=== PATIENT | female | born 1960 | race African-American/Black ===

== ENCOUNTER 2016-07-27 14:57 | Inpatient (IN) | payer OTHER ==
[2016-07-27] VITALS (16 sets, daily range): BP systolic 109–162; BP diastolic 81–108
[~2016-07-27] VITALS: Ht 152.4 cm; Wt 48.4 kg
--- NOTE | ~2016-07-27 | EKG ---
[address] [place] [address] ELECTROCARDIOGRAM REPORT Name: ALIDA DHALIWAL Room #: 246-P ADM IN M.R.#: [id number] Admission: 07/27/16 Attend Phys: Preet Ulrich MD Discharge: Date of : 64 Report #: [id number] THIS REPORT FOR: //name// [facility] ED Test Date: 2016-07-27 Test Time: 15:00:17 Pat Name: ALIDA DHALIWAL Department: Room: 246 Gender: F Production Expert: Teresa AVILA : 1960 Requested By: Julita Gabriel Order Number: [id number] MD: Silvestre Wells Measurements Intervals [place] Rate: 143 P: 79 MD: 119 QRS: -80 QRSD: 70 T: 78 QT: 269 QTc: 415 Interpretive Statements Sinus tachycardia Consider right atrial enlargement Abnormal R-wave progression, late transition Consider left ventricular hypertrophy Inferior infarct Compared to ECG 10/16/2015 02:38:10 no change Electronically Signed On 07-28-2016 11:22:08 CDT by Silvestre Wells [email or web address] <ELECTRONICALLY SIGNED> By: Silvestre Wells MD 07/28/16 1122 1500 Dhruv Wells MD /SARAH
--- NOTE | ~2016-07-27 | HC ---
[facility] [place] [place] [address] CONSULTATION Name: ALIDA DHALIWAL Room #: 304-P [facility] IN M.R.#: [id number] Admission: 07/27/16 Attend Phys: Preet Ulrich MD Discharge: 08/05/16 Date of : 64 Report #: [id number] THIS REPORT FOR: //name// CC: TERRI physician/PCP Preet Ulrich DATE OF SERVICE: 08/02/2016 IDENTIFICATION: Psychiatric consultation as requested for alcohol dependence. HISTORY OF PRESENT ILLNESS: The patient is a 55-year-old female who was admitted on the July 27 after daughter found the patient to be confused. The patient required intubation and now has been extubated. On interview, ____ alcohol use and says "I have not drank for 3 days." Notably, she seems to be unaware of the fact that she has been in hospital for 6 days in total. She minimizes any problems due to alcohol. She essentially denies any significant psychiatric history. She states that she has not been ____. When screened for depressive symptoms, she states that she has been depressed, but is not able to describe any further what that entails or how long it has been going on. A few minutes later, she goes on to state that her mood is just fine. Of note, the patient was seen by psychiatry in consultation last summer, she was prescribed naltrexone. The patient has no memory of this and it appears that she did not follow through. ALLERGIES: PENICILLIN, SULFA. MEDICATIONS: Reviewed and include Haldol 2.5 mg oral or intramuscular every 2 hours as needed, Ativan 1 mg every 4 hours as needed. PAST MEDICAL HISTORY: Pancytopenia, pancreatitis, hypertension. FAMILY HISTORY: Noncontributory. SOCIAL HISTORY: The patient is disabled, lives with her daughter, significant longstanding history of alcohol abuse. LABORATORY DATA: Urine drug screen was negative. Blood alcohol level was less than 10. MENTAL STATUS EXAMINATION: Adequate hygiene, polite, cooperative, fair eye contact. Speech notable for prolonged latency. Thought process concrete. No hallucinations or delusions. No suicidal or homicidal ideation. Affect calm, though blunted. She is confused, poor attention and short term memory. Insight and judgment overall poor at this time. [facility] [address] [place] [address] CONSULTATION Name: ALIDA DHALIWAL Room #: 304-P [facility] IN M.R.#: [id number] Admission: 07/27/16 Attend Phys: Preet Ulrich MD Discharge: 08/05/16 Date of : 64 Report #: [id number] DIAGNOSIS: Delirium, alcohol dependence. PLAN: The patient continues to demonstrate significant component of delirium. She is not an accurate historian. At this time, I would not introduce any further psychiatric medications. We will stop the Ativan. She is out of the window for alcohol withdrawal. We can continue the Haldol as needed. Advised to continue encouraging sobriety. Encouraged the patient to utilize chemical dependency resources. Thank you for this consultation. Please contact me with any further questions or concerns. <ELECTRONICALLY SIGNED> By: Belinda Ortiz MD 08/06/16 1158 1414 1649 Belinda Ortiz MD /nt
--- NOTE | ~2016-07-27 | HC ---
[facility] [place] [address] [place] [address] CONSULTATION Name: ALIDA DHALIWAL Room #: 246-P ADM IN M.R.#: [id number] Admission: 07/27/16 Attend Phys: Preet Ulrich MD Discharge: Date of : 64 Report #: [id number] THIS REPORT FOR: //name// CC: TERRI physician/PCP Preet Ulrich REASON FOR CONSULTATION: Elevated creatinine. REASON FOR THE PRESENTATION: Confusion, brought by her daughter. HISTORY OF PRESENT ILLNESS: Unfortunately, the patient is not able to provide me with the details of the history as she is currently intubated. She had a history of alcohol abuse. The daughter found the patient in bed and was unresponsive. She called 911. Upon arrival, the patient was found to be tachycardic with a pulse rate of around 280. Due to the lack of IV access, she was not given any medications. The patient's condition deteriorated and she was intubated in the emergency room. Details of the history are scanty as the patient and her family are not available. She did have an acute kidney injury back in 2016 with a creatinine of around 1.6. On presentation yesterday, she was found to have high BUN and creatinine. She was also found to have high serum sodium and high serum potassium and I was consulted to manage her acute kidney injury and electrolyte issues. REVIEW OF SYSTEMS: Completely unobtainable given the patient's altered mental status. PAST MEDICAL HISTORY: Significant for remote history of alcohol abuse and still ongoing history of alcohol abuse. ALLERGIES: PENICILLIN and SULFA. ADDITIONAL PAST MEDICAL HISTORY: Nephrolithiasis and cholelithiasis. SOCIAL HISTORY: Heavy drinker and smoker. FAMILY HISTORY: Unobtainable. MEDICATIONS: There was no reported medication intake. PAST SURGICAL HISTORY: Status post left femoral neck fracture repair. PHYSICAL EXAMINATION: GENERAL: The patient is currently intubated. VITAL SIGNS: Blood pressure 110/87. She is maintained on Levophed. HEAD AND NECK: ET tube. CHEST: Decreased air entry bilaterally. CARDIOVASCULAR: Tachycardic with no rub. [facility] [address] [place] [address] CONSULTATION Name: ALIDA DHALIWAL Room #: 246-P [facility] IN M.R.#: [id number] Admission: 07/27/16 Attend Phys: Preet Ulrich MD Discharge: Date of : 64 Report #: [id number] ABDOMEN: Soft, nontender. No hepatosplenomegaly. LOWER EXTREMITIES: No edema. NEUROLOGICAL: Intubated. GENERAL: She looks dehydrated, emaciated, thin, cachectic with all stigmata of chronic liver disease. LABORATORY VALUES: Reviewed. BUN is down from 98 to 77, creatinine is down to 3.4 from 5.5. Anion gap is down to 17 from 26. She is still acidotic with a carbon dioxide of 13, it is up from 12. Potassium is down to 3.5. Sodium is down from 148 to 139. Blood gas was reviewed. Toxicology screen is still pending. UA looks dirty. ASSESSMENT, IMPRESSION AND PLAN: 1. Acute kidney injury. 2. Metabolic acidosis. 3. Hypernatremia. 4. Hypokalemia. 5. Hypertension. 6. Tachycardia. 7. Ongoing alcohol abuse. 8. Septic workup is ongoing. She corrected her electrolyte issues. She is still acidotic. I will reformulate her IV fluids. 9. Antibiotics per the primary team. 10. Alcohol withdrawal protocol. 11. BUN and creatinine are coming down. 12. Usual routine end-stage liver disease workup. 13. Discussed plans of care with the family. 14. Lipase on presentation yesterday was 2295. I do not see any imaging of her abdomen and this might be pursued by the primary team. 15. Magnesium was rectified yesterday. 16. about her white blood cell count coming from 10 yesterday to 1.4. Repeat. 17. Thrombocytopenia was noted, could be related to her end-stage liver disease versus sepsis. 18. Urinalysis looked extremely dirty and we will wait for cultures. <ELECTRONICALLY SIGNED> By: Yomi Landry MD 07/29/16 0745 0745 22 Jadiel Estrada MD /nt
--- NOTE | ~2016-07-27 | HC ---
[facility] [place] [address] [place] [address] CONSULTATION Name: ALIDA DHALIWAL Room #: 304-P ADM IN M.R.#: [id number] Admission: 07/27/16 Attend Phys: Preet Ulrich MD Discharge: Date of : 64 Report #: [id number] THIS REPORT FOR: //name// CC: TERRI physician/PCP Preet Ulrich DATE OF SERVICE: 08/02/2016 HISTORY OF PRESENT ILLNESS: The patient is a 55-year-old female who was admitted with ETOH abuse, was confused, elevated heart rate of 130s, had emesis x 5 days when she was admitted. She was diagnosed with an acute metabolic encephalopathy secondary to ETOH intoxication and/or other as well as developing acute respiratory failure, for which she was intubated. She had sepsis secondary to urinary tract infection, acute renal insufficiency, pancreatitis, pancytopenia. She gradually stabilized, was able to be extubated. She had tremulousness, but was out of the window for ETOH withdrawal and her Ativan was discontinued. She was noted to be given Haldol as indicated for agitation. She was noted to have hoarseness due to intubation and ENT consulted. She was continued on IV antibiotics for her septicemia. Renal insufficiency is improving. She has now been transferred out of the intensive care unit and we are seeing her in rehabilitation medicine consultation. PAST MEDICAL HISTORY: Includes prior left hip fracture with surgery in October, history of ETOH abuse. HABITS: ____ every day smoker prior to admission and alcohol use as noted above. MEDICATIONS: Please see the full medication listing. ALLERGIES: PENICILLIN AND SULFA. SOCIAL HISTORY: Lives in an apartment with her sister, 17 steps without an elevator, used a 4-pronged cane, unemployed, sister works outside of the apartment. She does have some children that are involved as well. REVIEW OF SYSTEMS: Did not offer any current complaints of chest pain, shortness of breath or abdominal discomfort. No focal extremity pain complaints. Note, she is very weak. PHYSICAL EXAMINATION: GENERAL: A 55-year-old small statured -Welsh female of slender build. VITAL SIGNS: Last recorded temperature is 99.6, pulse 92, respirations 17, blood pressure 141/86. NEUROLOGIC: She is alert. There is a definite latency to her responses. She will follow basic 1 step commands. Appears to have some decreased insight into her deficits. Facies appeared symmetric. She has functional range of motion of both upper [facility] [address] [place] [address] CONSULTATION Name: ALIDA DHALIWAL Room #: 304-P [facility] IN ..#: [id number] Admission: 07/27/16 Attend Phys: Preet Ulrich MD Discharge: Date of : 64 Report #: [id number] extremities with strength grade 4- to 3+/5. DTRs are trace to 1. In her lower extremities, her old left hip incision is well healed. There is no focal calf swelling, functional range of motion, strength of the right lower extremity is a grade 4- to 3+. Left lower extremity, proximal strength is probably a grade 3 to 3+, distally, she grade 3+ to 4-. DTRs appeared to be intact. Functionally, she has been min assist to try to sit to stand or transfer bed to chair and she only took 2-3 steps min assist. ASSESSMENT: A 55-year-old female with the following problems: 1. Acute metabolic encephalopathy. 2. History of ETOH abuse/intoxication. 3. Acute respiratory failure. 4. Sepsis secondary to urinary tract infection. 5. Acute renal insufficiency with electrolyte abnormalities. 6. Pancytopenia. 7. Pancreatitis. 8. Hypertension. 9. Hoarseness, thought secondary to intubation. 10. Pneumonia. PLAN: Therapies are working with her on improving her strength and endurance. We will add occupational therapy. Insurance will need to be checked regarding an acute inpatient rehab stay if she further medically stabilizes. We will be glad to follow along with you regarding rehab therapy needs. <ELECTRONICALLY SIGNED> By: Wesly Modi MD 08/05/16 1455 1425 1710 Wesly Modi MD /nt
[~2016-07-27 14:57] MED LIST: BISACODYL SUPP10 MG RECTAL; NICOTINE TRANSD21 M1; NOHOMEMEDICATIONS; PRILOSEC OTC20 MG PO; TYLENOL325 MG PO; VITAMIN B-1100 M1 PO
[2016-07-27 15:18] LABS: ABG SAMPLE TYPE ARTERIAL; BE(vivo) -13.1 mmol/L (-2 to +3); HCO3 12.2 mmol/L (22.0-26.0); LACTATE 2.52 mmol/L (0.5-2.0); O2(CT) 16.1 mL/dL (15.0-23.0); O2Hb 85.2 % (92.0-98.0); PCO2 27.4 mmHg (35.0-45.0); PO2 63.2 mmHg (80.0-100.0); sO2 89.6 % (92.0-98.0); tCO2 13.1 mmol/L (24.0-30.0)
[2016-07-27 15:19] LABS: STICK SITE R.BRACHIAL; pH 7.268 (7.360-7.450)
[2016-07-27 15:30] LABS: ABSOLUTE NEUTROPHILS 8.2 thou/uL (1.4-8.2); BASOPHILS 0.6 % (0.0-2.0); HEMATOCRIT 36.7 % (37.0-47.0); HEMOGLOBIN 12.4 gm/dL (12.0-15.0); LYMPHOCYTES 14.2 % (24.0-44.0); MANUAL DIFF NO; MCH 33.3 pg (26.0-34.0); MCHC 33.9 g/dL (28.0-37.0); MCV 98.2 fL (80.0-100.0); MONOCYTES 5.4 % (1.0-8.0); PLATELET COUNT 174 thou/uL (150-400); POLYS 79.8 % (36.0-66.0); RBC 3.74 mil/uL (4.20-5.00); RDW 14.6 % (10.5-14.5); WBC 10.3 thou/uL (4.0-11.0)
[2016-07-27 15:39] LABS: ANION GAP 26 mmol/L (7-16); BUN 98 mg/dL (7-18); CALCIUM 10.2 mg/dL (8.5-10.1); CHLORIDE 110 mmol/L (98-107); CO2 12 mmol/L (21-32); CREATININE 5.5 mg/dL (0.6-1.3); GLUCOSE 148 mg/dL (70-99); POTASSIUM 5.6 mmol/L (3.5-5.1); SODIUM 148 mmol/L (136-145)
[2016-07-27 15:50] LABS: ALBUMIN 4.2 g/dL (3.4-5.0); ALKALINE PHOSPHATASE 83 U/L (46-116); DIRECT BILIRUBIN 0.1 mg/dL (<0.1-0.3); NT-PRO BRAIN NAT PEPTIDE 5457 pg/mL (<300); SGOT 26 U/L (15-37); SGPT 18 U/L (30-65); TOTAL BILIRUBIN 0.4 mg/dL (<0.1-1.0); TOTAL PROTEIN 9.3 g/dL (6.4-8.2); TROPONIN-I < 0.04 ng/mL (<0.04-0.07)
[2016-07-27 16:04] LABS: URINE BILIRUBIN 3+ (Negative); URINE BLOOD 3+ (Negative); URINE GLUCOSE-RANDOM* NEGATIVE (Negative); URINE KETONES 1+ (Negative); URINE LEUKOCYTES-REFLEX 2+ (Negative); URINE PROTEIN (DIPSTICK) 2+ (Negative); URINE SPECIFIC GRAVITY >= 1.030 (1.003-1.035)
[2016-07-27 16:07] LABS: URINE COLOR DARK YELLOW
[2016-07-27 16:09] LABS: ICTOTEST (BILI CONFIRMATORY) Positive (Negative)
[2016-07-27 16:10] LABS: AMORPHOUS URATES Moderate /LPF (None Seen); CASTS None Seen /LPF (None Seen); SQUAMOUS 0-3 Few /LPF (0-3); URINE RBC >20 Many /HPF (0-2); URINE WBC-REFLEX >25 Many /HPF (0-5)
[2016-07-27 18:35] LABS: URINE BILIRUBIN 3+ (Negative); URINE BLOOD 3+ (Negative); URINE GLUCOSE-RANDOM* NEGATIVE (Negative); URINE KETONES 1+ (Negative); URINE NITRITE POSITIVE (Negative); URINE PROTEIN (DIPSTICK) 3+ (Negative); URINE SPECIFIC GRAVITY 1.025 (1.003-1.035)
[2016-07-27 18:37] LABS: ICTOTEST (BILI CONFIRMATORY) Positive (Negative); URINE COLOR DARK YELLOW
[2016-07-27 18:43] LABS: AMP/METHAMP Negative (Negative); BACTERIA >30 Many /HPF (None Seen); BARBITURATES Negative (Negative); BENZODIAZEPINES Negative (Negative); COCAINE Negative (Negative); CRYSTALS None Seen /LPF (None Seen); METHADONE Negative (Negative); OPIATES Negative (Negative); PCP Negative (Negative); SQUAMOUS 0-3 Few /LPF (0-3); THC Negative (Negative); URINE RBC >20 Many /HPF (0-2)
[2016-07-27 18:44] LABS: HYALINE CASTS 0-3 Few /LPF (None Seen)
[2016-07-27 19:17] LABS: ABG SAMPLE TYPE ARTERIAL; BE(vivo) -14.9 mmol/L (-2 to +3); HCO3 11.7 mmol/L (22.0-26.0); LACTATE 1.59 mmol/L (0.5-2.0); O2(CT) 15.3 mL/dL (15.0-23.0); O2Hb 97.5 % (92.0-98.0); PCO2 30.1 mmHg (35.0-45.0); sO2 98.9 % (92.0-98.0); tCO2 12.6 mmol/L (24.0-30.0)
[2016-07-27 19:18] LABS: FIO2 60 %; STICK SITE L.BRACHIAL; pH 7.208 (7.360-7.450)
[2016-07-27 19:19] LABS: TIDAL VOLUME 450 ml
[2016-07-27 19:39] LABS: CALCIUM 8.4 mg/dL (8.5-10.1); CREATININE 4.7 mg/dL (0.6-1.3)
[2016-07-27 19:44] LABS: ALBUMIN 3.2 g/dL (3.4-5.0); MAGNESIUM 1.8 mg/dL (1.8-2.4); PHOSPHORUS 5.4 mg/dL (2.5-4.9); TOTAL BILIRUBIN 0.3 mg/dL (<0.1-1.0); TOTAL PROTEIN 7.2 g/dL (6.4-8.2)
[2016-07-27 20:13] LABS: ABG SAMPLE TYPE VENOUS; BE(vivo) -16.2 mmol/L (-2 to +3); HCO3 11.4 mmol/L (22.0-26.0); O2(CT) 9.4 mL/dL (15.0-23.0); O2Hb VENOUS 60.2 (65.0-85.0); PCO2 VENOUS 32.8 mmHg (41.0-51.0); PO2 VENOUS 43.8 mmHg (35.0-45.0); sO2 VENOUS 67.5 % (65.0-85.0); tCO2 12.4 mmol/L (24.0-30.0)
[2016-07-27 20:14] LABS: ABG COMMENT VBG #1; STICK SITE LINE; TIDAL VOLUME 450 ml
[2016-07-27 20:14] LABS: FOLIC ACID 9.1 ng/mL (8.6-58.9)
[2016-07-27 20:41] LABS: APTT 24.1 Seconds (24.5-32.8); FIBRINOGEN 300.2 mg/dL (210-360); INR 1.1; PROTIME 11.3 Seconds (9.3-11.4)
[2016-07-27 21:02] LABS: EOSINOPHILS 0.2 % (0.0-3.0)
[2016-07-27 21:04] LABS: ABSOLUTE NEUTROPHILS 0.8 thou/uL (1.4-8.2); BASOPHILS 0.5 % (0.0-2.0); LYMPHOCYTES 35.2 % (24.0-44.0); MCH 33.2 pg (26.0-34.0); MCHC 33.6 g/dL (28.0-37.0); MCV 98.8 fL (80.0-100.0); MONOCYTES 3.1 % (1.0-8.0); RBC 2.73 mil/uL (4.20-5.00); RDW 14.5 % (10.5-14.5)
[2016-07-27 21:12] LABS: HEMOGLOBIN 9.1 gm/dL (12.0-15.0); PLATELET COUNT 86 thou/uL (150-400)
[2016-07-27 21:14] LABS: MANUAL DIFF NO; WBC 1.4 thou/uL (4.0-11.0)
[2016-07-27 21:41] LABS: ANISOCYTOSIS SLIGHT; PLATELET ESTIMATE DECREASED; POIKILOCYTOSIS SLIGHT
[2016-07-27 21:48] LABS: CALCIUM 7.5 mg/dL (8.5-10.1); CREATININE 4.3 mg/dL (0.6-1.3); POTASSIUM 4.6 mmol/L (3.5-5.1)
[2016-07-27 22:30] LABS: ABG SAMPLE TYPE ARTERIAL; BE(vivo) -14.8 mmol/L (-2 to +3); HCO3 11.8 mmol/L (22.0-26.0); LACTATE 1.32 mmol/L (0.5-2.0); O2(CT) 13.7 mL/dL (15.0-23.0); O2Hb 95.3 % (92.0-98.0); PCO2 30.1 mmHg (35.0-45.0); PO2 108.6 mmHg (80.0-100.0); tCO2 12.7 mmol/L (24.0-30.0)
[2016-07-27 22:31] LABS: STICK SITE RBA
[2016-07-27 22:32] LABS: TIDAL VOLUME 450 ml
[2016-07-28] VITALS (64 sets, daily range): BP systolic 73–148; BP diastolic 50–91
[2016-07-28 05:35] LABS: HEMATOCRIT 24.9 % (37.0-47.0); HEMOGLOBIN 8.2 gm/dL (12.0-15.0); MCH 32.9 pg (26.0-34.0); MCHC 32.9 g/dL (28.0-37.0); MCV 99.9 fL (80.0-100.0); PLATELET COUNT 60 thou/uL (150-400); RBC 2.49 mil/uL (4.20-5.00); RDW 14.6 % (10.5-14.5)
[2016-07-28 05:37] LABS: MANUAL DIFF YES
[2016-07-28 05:38] LABS: WBC 1.4 thou/uL (4.0-11.0)
[2016-07-28 06:05] LABS: ABSOLUTE NEUTROPHILS 0.8 thou/uL (1.4-8.2); METAMYELOCYTES 2 %; MYELOCYTES 1 %; PLATELET ESTIMATE DECREASED; TOTAL CELL COUNT 100
[2016-07-28 06:06] LABS: ANISOCYTOSIS 2+
[2016-07-28 06:10] LABS: CALCIUM 7.2 mg/dL (8.5-10.1); CREATININE 3.4 mg/dL (0.6-1.3)
[2016-07-28 06:13] LABS: ALBUMIN 2.2 g/dL (3.4-5.0); MAGNESIUM 2.8 mg/dL (1.8-2.4); PHOSPHORUS 2.8 mg/dL (2.5-4.9)
[2016-07-28 06:15] LABS: POTASSIUM 3.5 mmol/L (3.5-5.1)
[2016-07-28 06:30] LABS: URINE BILIRUBIN 1+ (Negative); URINE BLOOD 3+ (Negative); URINE COLOR YELLOW; URINE GLUCOSE-RANDOM* NEGATIVE (Negative); URINE KETONES TRACE (Negative); URINE LEUKOCYTES-REFLEX 1+ (Negative); URINE PROTEIN (DIPSTICK) 2+ (Negative); URINE UROBILINOGEN 0.2 E.U./dl (0.2-1.0)
[2016-07-28 06:44] LABS: ICTOTEST (BILI CONFIRMATORY) Positive (Negative)
[2016-07-28 06:49] LABS: AMORPHOUS URATES Moderate /LPF (None Seen); SQUAMOUS 4-10 Moderate /LPF (0-3); URINE RBC >20 Many /HPF (0-2); URINE WBC-REFLEX >25 Many /HPF (0-5)
[2016-07-28 06:50] LABS: CASTS None Seen /LPF (None Seen)
[2016-07-28 07:38] LABS: ABG SAMPLE TYPE ARTERIAL; BE(vivo) -12.3 mmol/L (-2 to +3); HCO3 13.2 mmol/L (22.0-26.0); LACTATE 1.95 mmol/L (0.5-2.0); O2(CT) 12.2 mL/dL (15.0-23.0); O2Hb 95.6 % (92.0-98.0); PCO2 28.8 mmHg (35.0-45.0); PO2 108.1 mmHg (80.0-100.0); sO2 97.5 % (92.0-98.0); tCO2 14.1 mmol/L (24.0-30.0)
[2016-07-28 07:39] LABS: STICK SITE R.RADIAL; TIDAL VOLUME 450 ml
[2016-07-28 09:07] LABS: FREE T4 0.82 ng/dL (0.82-1.77)
[2016-07-28 17:16] LABS: HEMATOCRIT 22.4 % (37.0-47.0); HEMOGLOBIN 7.4 gm/dL (12.0-15.0)
[2016-07-29] VITALS (64 sets, daily range): BP systolic 82–142; BP diastolic 55–94
[2016-07-29 06:32] LABS: WBC 4.1 thou/uL (4.0-11.0)
[2016-07-29 06:34] LABS: MCHC 34.3 g/dL (28.0-37.0); MCV 96.3 fL (80.0-100.0); RBC 1.99 mil/uL (4.20-5.00); RDW 14.5 % (10.5-14.5)
[2016-07-29 06:40] LABS: MANUAL DIFF YES
[2016-07-29 06:41] LABS: HEMATOCRIT 19.2 % (37.0-47.0); HEMOGLOBIN 6.6 gm/dL (12.0-15.0)
[2016-07-29 06:42] LABS: PLATELET COUNT 48 thou/uL (150-400)
[2016-07-29 06:53] LABS: ALBUMIN 1.8 g/dL (3.4-5.0); CALCIUM 6.8 mg/dL (8.5-10.1); MAGNESIUM 1.5 mg/dL (1.8-2.4); PHOSPHORUS 2.8 mg/dL (2.5-4.9)
[2016-07-29 06:54] LABS: CREATININE 2.2 mg/dL (0.6-1.3)
[2016-07-29 06:55] LABS: POTASSIUM 2.4 mmol/L (3.5-5.1)
[2016-07-29 08:01] LABS: ABSOLUTE RETIC COUNT 0.0146 10^6/uL; OBSERVED RETIC COUNT 0.72 % (0.6-2.6)
[2016-07-29 08:05] LABS: HEMOGLOBIN 6.7 gm/dL (12.0-15.0)
[2016-07-29 08:05] LABS: ABSOLUTE NEUTROPHILS 3.1 thou/uL (1.4-8.2); ANISOCYTOSIS SLIGHT; HYPOCHROMASIA 2+; METAMYELOCYTES 2 %; POIKILOCYTOSIS SLIGHT; TOTAL CELL COUNT 100
[2016-07-29 08:06] LABS: PLATELET ESTIMATE DECREASED
[2016-07-29 08:08] LABS: MCH 33.1 pg (26.0-34.0); MCHC 34.3 g/dL (28.0-37.0); MCV 96.5 fL (80.0-100.0); RBC 2.03 mil/uL (4.20-5.00); RDW 14.4 % (10.5-14.5); WBC 4.7 thou/uL (4.0-11.0)
[2016-07-29 08:09] LABS: ALBUMIN 1.8 g/dL (3.4-5.0); CALCIUM 6.7 mg/dL (8.5-10.1); CREATININE 2.1 mg/dL (0.6-1.3); TOTAL BILIRUBIN 0.2 mg/dL (<0.1-1.0); TOTAL PROTEIN 4.5 g/dL (6.4-8.2)
[2016-07-29 08:11] LABS: POTASSIUM 2.5 mmol/L (3.5-5.1)
[2016-07-29 08:17] LABS: % SATURATION 12 % (20-39); IRON 12 ug/dL (50-170); TIBC 98 ug/dL (250-450); UIBC 86 ug/dL
[2016-07-29 08:21] LABS: HEMATOCRIT 19.6 % (37.0-47.0); HEMOGLOBIN 6.7 gm/dL (12.0-15.0)
[2016-07-29 16:21] LABS: WBC 5.4 thou/uL (4.0-11.0)
[2016-07-29 16:22] LABS: HEMATOCRIT 30.9 % (37.0-47.0); MCH 32.1 pg (26.0-34.0); MCHC 34.4 g/dL (28.0-37.0); MCV 93.1 fL (80.0-100.0); RBC 3.32 mil/uL (4.20-5.00); RDW 15.6 % (10.5-14.5)
[2016-07-29 16:26] LABS: HEMOGLOBIN 10.7 gm/dL (12.0-15.0)
[2016-07-29 16:32] LABS: CALCIUM 6.6 mg/dL (8.5-10.1); CREATININE 1.9 mg/dL (0.6-1.3); POTASSIUM 3.8 mmol/L (3.5-5.1)
[2016-07-30] VITALS (45 sets, daily range): BP systolic 94–169; BP diastolic 69–107
[2016-07-30 05:47] LABS: HEMATOCRIT 31.5 % (37.0-47.0); HEMOGLOBIN 10.9 gm/dL (12.0-15.0); MCH 32.4 pg (26.0-34.0); MCHC 34.5 g/dL (28.0-37.0); MCV 93.9 fL (80.0-100.0); RBC 3.36 mil/uL (4.20-5.00); RDW 15.8 % (10.5-14.5); WBC 6.2 thou/uL (4.0-11.0)
[2016-07-30 06:02] LABS: ALBUMIN 1.9 g/dL (3.4-5.0); CALCIUM 6.8 mg/dL (8.5-10.1); CREATININE 1.7 mg/dL (0.6-1.3); MAGNESIUM 1.9 mg/dL (1.8-2.4); PHOSPHORUS 5.1 mg/dL (2.5-4.9); POTASSIUM 3.4 mmol/L (3.5-5.1)
[2016-07-30 10:51] LABS: ABG SAMPLE TYPE ARTERIAL; BE(vivo) -2.1 mmol/L (-2 to +3); HCO3 22.6 mmol/L (22.0-26.0); LACTATE 0.98 mmol/L (0.5-2.0); O2(CT) 15.9 mL/dL (15.0-23.0); O2Hb 96.5 % (92.0-98.0); PCO2 38.4 mmHg (35.0-45.0); PO2 109.3 mmHg (80.0-100.0); STICK SITE R.RADIAL; pH 7.388 (7.360-7.450); tCO2 23.8 mmol/L (24.0-30.0)
[2016-07-30 10:52] LABS: ABG COMMENT CPAP X 1 HOUR; Pressure Support 8 cm H20
[2016-07-30 15:06] LABS: ETHYLENE GLYCOL None Detected (None detected)
[2016-07-31] VITALS (49 sets, daily range): BP systolic 93–165; BP diastolic 68–145
[2016-07-31 06:09] LABS: HEMATOCRIT 32.1 % (37.0-47.0); HEMOGLOBIN 10.9 gm/dL (12.0-15.0); MCH 32.1 pg (26.0-34.0); MCHC 34.1 g/dL (28.0-37.0); RBC 3.41 mil/uL (4.20-5.00); RDW 15.7 % (10.5-14.5); WBC 6.9 thou/uL (4.0-11.0)
[2016-07-31 06:18] LABS: ALBUMIN 1.9 g/dL (3.4-5.0); CALCIUM 7.5 mg/dL (8.5-10.1); CREATININE 1.3 mg/dL (0.6-1.3); MAGNESIUM 1.4 mg/dL (1.8-2.4); POTASSIUM 4.6 mmol/L (3.5-5.1); TOTAL BILIRUBIN 0.3 mg/dL (<0.1-1.0)
[2016-07-31 10:33] LABS: ABG SAMPLE TYPE ARTERIAL; BE(vivo) -3.2 mmol/L (-2 to +3); HCO3 21.7 mmol/L (22.0-26.0); LACTATE 0.81 mmol/L (0.5-2.0); O2(CT) 15.9 mL/dL (15.0-23.0); O2Hb 97.5 % (92.0-98.0); PCO2 38.4 mmHg (35.0-45.0); PO2 109.5 mmHg (80.0-100.0); STICK SITE R.BRACHIAL; sO2 97.9 % (92.0-98.0); tCO2 22.9 mmol/L (24.0-30.0)
[2016-07-31 10:34] LABS: ABG COMMENT 1.5 HRS CPAP; Pressure Support 5 cm H20
[2016-08-01] VITALS (29 sets, daily range): BP systolic 85–161; BP diastolic 59–117
[2016-08-01 05:12] LABS: HEMATOCRIT 30.9 % (37.0-47.0); HEMOGLOBIN 10.5 gm/dL (12.0-15.0); MCHC 33.8 g/dL (28.0-37.0); MCV 94.5 fL (80.0-100.0); RBC 3.27 mil/uL (4.20-5.00); RDW 15.5 % (10.5-14.5); WBC 8.3 thou/uL (4.0-11.0)
[2016-08-01 05:26] LABS: ALBUMIN 1.8 g/dL (3.4-5.0); CALCIUM 7.8 mg/dL (8.5-10.1); CREATININE 1.3 mg/dL (0.6-1.3); MAGNESIUM 1.4 mg/dL (1.8-2.4); PHOSPHORUS 3.5 mg/dL (2.5-4.9); POTASSIUM 4.7 mmol/L (3.5-5.1)
[2016-08-01 08:30] LABS: ABG SAMPLE TYPE ARTERIAL; BE(vivo) -1.4 mmol/L (-2 to +3); HCO3 23.1 mmol/L (22.0-26.0); LACTATE 1.02 mmol/L (0.5-2.0); O2(CT) 15.3 mL/dL (15.0-23.0); O2Hb 96.9 % (92.0-98.0); PO2 123.1 mmHg (80.0-100.0); Pressure Support 6 cm H20; STICK SITE R.BRACHIAL; pH 7.402 (7.360-7.450); sO2 98.5 % (92.0-98.0); tCO2 24.3 mmol/L (24.0-30.0)
[2016-08-02] VITALS (15 sets, daily range): BP systolic 121–164; BP diastolic 76–97
[2016-08-02 05:12] LABS: HEMATOCRIT 29.3 % (37.0-47.0); HEMOGLOBIN 9.9 gm/dL (12.0-15.0); RBC 3.11 mil/uL (4.20-5.00); RDW 15.3 % (10.5-14.5); WBC 4.8 thou/uL (4.0-11.0)
[2016-08-02 05:37] LABS: CREATININE 1.3 mg/dL (0.6-1.3); POTASSIUM 4.2 mmol/L (3.5-5.1)
[2016-08-03 04:12] VITALS: BP 166/99
[2016-08-03 07:15] VITALS: BP 159/89
[2016-08-03 07:30] LABS: HEMATOCRIT 29.7 % (37.0-47.0); MCH 31.9 pg (26.0-34.0); MCHC 33.8 g/dL (28.0-37.0); MCV 94.6 fL (80.0-100.0); RBC 3.14 mil/uL (4.20-5.00); RDW 15.1 % (10.5-14.5); WBC 7.8 thou/uL (4.0-11.0)
[2016-08-03 07:36] LABS: CALCIUM 7.5 mg/dL (8.5-10.1); CREATININE 1.2 mg/dL (0.6-1.3); POTASSIUM 3.4 mmol/L (3.5-5.1)
[2016-08-03 11:29] VITALS: BP 145/78
[2016-08-03 16:34] VITALS: BP 106/67
[2016-08-03 19:02] VITALS: BP 139/78
[2016-08-04 03:50] VITALS: BP 148/89
[2016-08-04 08:48] VITALS: BP 134/83
[2016-08-04 12:20] VITALS: BP 143/83
[2016-08-04 16:41] VITALS: BP 153/76
[2016-08-04 19:06] VITALS: BP 115/77
[2016-08-05 04:45] VITALS: BP 154/88
[2016-08-05 06:01] LABS: HEMATOCRIT 28.7 % (37.0-47.0); HEMOGLOBIN 9.7 gm/dL (12.0-15.0); MCH 31.8 pg (26.0-34.0); MCHC 33.9 g/dL (28.0-37.0); MCV 93.9 fL (80.0-100.0); RBC 3.06 mil/uL (4.20-5.00); RDW 15.3 % (10.5-14.5); WBC 10.6 thou/uL (4.0-11.0)
[2016-08-05 06:17] LABS: CALCIUM 6.5 mg/dL (8.5-10.1); CREATININE 1.4 mg/dL (0.6-1.3)
[2016-08-05 06:55] LABS: POTASSIUM 2.5 mmol/L (3.5-5.1)
[2016-08-05 07:26] VITALS: BP 137/75
[2016-08-05 15:56] VITALS: BP 126/80
[2016-08-05] MEDS ORDERED: LOPRESSOR25 PO (16:15)
[2016-08-05] MEDS ORDERED: NICOTINE TRANSD21 M1 TRANSDERM (16:15)
[2016-08-05] MEDS ORDERED: HALOPERIDOL 5 MG5 MG PO (16:16)
[2016-08-05] MEDS ORDERED: PREDNISONE 20 M20 M1 PO (16:16)
[2016-08-05] MEDS ORDERED: HUMALOG100 UNIT/1 SUBQ (16:17)
== END 2016-08-05 17:59 | DRG 870 ==
LOC: ER 14:57 → ICU 17:11 → EROBS 17:11 → ICU 19:25 → 3N 08-02 14:13
PROVIDERS: Emergency Medicine; Hospitalist; Internal Medicine; Internal Medicine Hematology & Oncology; Internal Medicine Nephrology; Internal Medicine Pulmonary Disease
PROC: 0BH17EZ Insertion of Endotracheal Airway into Trachea, Via Natural or Artificial Opening (ICD-10-PCS; principal; 2016-07-27)
PROC: 02HV33Z Insertion of Infusion Device into Superior Vena Cava, Percutaneous Approach (ICD-10-PCS; 2016-07-27)
PROC: 5A1955Z Respiratory Ventilation, Greater than 96 Consecutive Hours (ICD-10-PCS; 2016-07-27)
PROC: 30233N1 Transfusion of Nonautologous Red Blood Cells into Peripheral Vein, Percutaneous Approach (ICD-10-PCS; 2016-07-29)
DX: A41.51 Sepsis due to Escherichia coli [E. coli] (principal); R65.21 Severe sepsis with septic shock; G93.41 Metabolic encephalopathy; J18.9 Pneumonia, unspecified organism; J96.00 Acute respiratory failure, unspecified whether with hypoxia or hypercapnia; K85.20 Alcohol induced acute pancreatitis without necrosis or infection; N17.9 Acute kidney failure, unspecified; D61.818 Other pancytopenia; E87.0 Hyperosmolality and hypernatremia; F10.231 Alcohol dependence with withdrawal delirium; N39.0 Urinary tract infection, site not specified; F10.229 Alcohol dependence with intoxication, unspecified; B96.20 Unspecified Escherichia coli [E. coli] as the cause of diseases classified elsewhere; Z16.23 Resistance to quinolones and fluoroquinolones; Y90.0 Blood alcohol level of less than 20 mg/100 ml; E87.5 Hyperkalemia; I12.9 Hypertensive chronic kidney disease with stage 1 through stage 4 chronic kidney disease, or unspecified chronic kidney disease; N18.9 Chronic kidney disease, unspecified; R49.0 Dysphonia; F17.210 Nicotine dependence, cigarettes, uncomplicated; E86.0 Dehydration; E63.9 Nutritional deficiency, unspecified; E87.6 Hypokalemia; E83.42 Hypomagnesemia; H10.89 Other conjunctivitis; Z88.2 Allergy status to sulfonamides; Z88.0 Allergy status to penicillin; Z87.81 Personal history of (healed) traumatic fracture; Z56.0 Unemployment, unspecified
CPT/HCPCS: 10078; 10096; 27000; 85076

== ENCOUNTER 2016-08-05 16:58 | Inpatient (IN) | payer OTHER ==
[~2016-08-05] VITALS: Ht 157.5 cm; Wt 51.7 kg
--- NOTE | ~2016-08-05 | PLAN ---
[facility] [place] [address] [place] [address] REHAB UNIT PLAN OF CARE Name: ALIDA DHALIWAL Room #: 513-P ADM IN M.R.#: [id number] Admission: 08/05/16 Attend Phys: Wesly Modi MD Discharge: Date of : 64 Report #: [id number] THIS REPORT FOR: //name// CC: Wesly Modi [facility] physician/PCP HISTORY OF PRESENT ILLNESS: The patient is seen back today in followup. She was not keen on doing her therapies and actually refused with physical therapy earlier this morning. I went in and discussed with her the importance of doing her therapies and encouraged her to try to do this if she wants to get back to the home setting. Her temperature is 37.3, pulse 97, respirations 16, blood pressure 117/81. She is transferring with contact guard, gait 150 feet, contact guard with front-wheeled walker. Occupational therapy, upper body dressing was setup, lower body was max assist. Speech comprehension was mild to moderate, she has mild dysphagia. ASSESSMENT: 1. Acute metabolic encephalopathy. 2. History of alcohol abuse with intoxication. 3. Acute respiratory failure. 4. Sepsis secondary to urinary tract infection. 5. Acute renal insufficiency with electrolyte abnormalities. 6. Pancytopenia. 7. Pancreatitis. 8. Hypertension. 9. Pneumonia. PLAN: The overall plan of care is based on the preadmission screen, post-admission physician evaluation and information garnered from therapy assessments. 1. Estimated length of stay is probably at least 7-10 days depending upon her progress and how she does. 2. Medical prognosis is reasonably good. 3. Anticipated interventions includes the interdisciplinary acute inpatient rehabilitation program. 4. Anticipated functional outcomes would be for her to improve as far as endurance, independence, cognition, so that she can return back to the home setting. 5. Discharge destination would be back to her apartment with her sister. 6. Expected therapy by discipline includes PT and OT and speech 1 hour per day each five days a week throughout the duration of the acute inpatient rehabilitation stay. <ELECTRONICALLY SIGNED> By: Wesly Modi MD 08/12/16 1054 1154 30 Wesly Modi MD /nt
--- NOTE | ~2016-08-05 | H ---
[facility] [place] [address] [place] [address] HISTORY AND PHYSICAL Name: ALIDA DHALIWAL Room #: 513-P ADM IN M.R.#: [id number] Admission: 08/05/16 Attend Phys: Wesly Modi MD Discharge: Date of : 64 Report #: [id number] THIS REPORT FOR: //name// CC: Wesly Modi [facility] physician/PCP DATE OF SERVICE: 08/06/2016 HISTORY AND PHYSICAL/POST-ADMISSION PHYSICIAN EVALUATION HISTORY OF PRESENT ILLNESS: The patient is a 55-year-old female who was originally admitted to [facility] with alcohol abuse, confused, elevated heart rate at 130s and had emesis for 5 days when she was admitted. She was diagnosed with an acute metabolic encephalopathy secondary to EtOH intoxication and/or other as well as developing acute respiratory failure for which she was intubated. She had sepsis secondary to urinary tract infection, acute renal insufficiency, pancreatitis, and pancytopenia. She was gradually stabilized and able to be extubated. She had tremulousness, but was out of the window for EtOH withdrawal and her Ativan was discontinued. She was noted to be given Haldol as indicated for agitation. She was noted to have hoarseness due to intubation and ENT was consulted. She continued on the IV antibiotics for her septicemia. Her renal insufficiency improved. She was noted to gradually improve and to be able to tolerate therapies better. She was monitored regarding pancreatitis and pancytopenia. She has now been admitted for acute in-hospital inpatient rehabilitation. PAST MEDICAL HISTORY: Includes a prior left hip fracture with surgery in October and history of alcohol abuse. HABITS: Noted to be an everyday smoker prior to admission with alcohol use noted above. MEDICATIONS: The medications including supplements and [id number] were all entered in with the medication reconciliation that took place as part of her admission. ALLERGIES: PENICILLIN AND SULFA. SOCIAL HISTORY: Lives in an apartment with her sister, 17 steps in without an elevator, used a 4-pronged cane, unemployed, sister works outside of the apartment. The patient does have some children that are involved as well. REVIEW OF SYSTEMS: No current complaints of chest pain, shortness of breath or abdominal discomfort. No focal extremity pain complaints. PHYSICAL EXAMINATION: [facility] [address] [place] [address] HISTORY AND PHYSICAL Name: ALIDA DHALIWAL Room #: 513-P [facility] IN .R.#: [id number] Admission: 08/05/16 Attend Phys: Wesly Modi MD Discharge: Date of : 64 Report #: [id number] GENERAL: A 55-year-old -Bangladeshi female. She is in no obvious distress. She likes to wear a brief and apparently wore one premorbidly. She was using a walker/wheelchair at home. VITAL SIGNS: Last recorded temperature 37.8, pulse 96, respirations 20, and blood pressure 132/82. HEENT: Appeared to be benign. Facies were symmetric. CHEST: Sounded clear to auscultation. CARDIOVASCULAR: Regular rate and rhythm. ABDOMEN: Bowel sounds positive, nontender. GENITOURINARY: Deferred. RECTAL: Deferred. NEUROLOGIC: She is sleepy, but will respond. She was seen earlier. There was a definite latency to her responses with some decreased insight into her deficits. Facies appeared symmetric. EXTREMITIES: She has functional range of motion of both upper extremities with strength grade 4- to 3+/5. DTRs are trace to 1. In her lower extremities, the old left hip incision is well healed. There is no focal calf swelling. Functional range of motion with strength of the right lower extremity a grade 4- to 3+. Left lower extremity proximal strength is a grade 3 to 3+, distally she has a 3+ to 4-. DTRs appeared intact. She has been needing min assist with basic transfers and has only been able to ambulate a short distance with assistance. ASSESSMENT: A 55-year-old -Bangladeshi female with the following problem list: 1. Acute metabolic encephalopathy. 2. History of alcohol abuse with intoxication. 3. Acute respiratory failure. 4. Sepsis secondary to urinary tract infection. 5. Acute renal insufficiency with electrolyte abnormalities. 6. Pancytopenia. 7. Pancreatitis. 8. Hypertension. 9. Hoarseness thought secondary to intubation. 10. Pneumonia. PLAN: The patient is admitted for acute in-hospital inpatient rehabilitation. From a post-admission physician evaluation, there are no relevant changes since the preadmission screening. Please see the above review of prior and current medical and functional conditions and comorbidities. The patient is admitted for acute in-hospital inpatient rehabilitation to maximize her functional independence with mobility and ADLs and cognition so that she can return back to the home setting. We would anticipate a hopefully fairly short length of stay, [address] [place] [address] HISTORY AND PHYSICAL Name: ALIDA DHALIWAL Room #: 513-P [facility] IN M.R.#: [id number] Admission: 08/05/16 Attend Phys: Wesly Modi MD Discharge: Date of : 64 Report #: [id number] maybe 10 days to 2 weeks depending upon how she does. Prognosis is reasonably good. We will need to see how she progresses in her rehab program. <ELECTRONICALLY SIGNED> By: Wesly Modi MD 08/12/16 1054 0949 1025 Wesly Modi MD /nt
--- NOTE | ~2016-08-05 | HC ---
[facility] [place] [address] CONSULTATION Name: ALIDA DHALIWAL Room #: 513-P ADM IN M.R.#: [id number] Admission: 08/05/16 Attend Phys: Wesly Modi MD Discharge: Date of : 64 Report #: [id number] THIS REPORT FOR: //name// CC: Wesly Modi [facility] physician/PCP DICTATED BY: Chance Mclean PhD DATE OF SERVICE: 08/11/2016 NEUROBEHAVIORAL STATUS EXAMINATION ATTENDING PHYSICIAN: Wesly Modi M.D. GRANTS SPECIALIST: Chance Mclean, PhD. CLINICAL PRESENTATION: The patient is a 55-year-old female admitted to [facility] for comprehensive inpatient rehabilitation program to assist with management of activities of daily living and self-care and mental status from an acute metabolic encephalopathy. Her diagnostic impression and admission includes a history of alcohol abuse with intoxication, acute respiratory failure, sepsis secondary to UTI, acute renal insufficiency with electrolyte abnormalities, pancytopenia, pancreatitis, hypertension, hoarseness thought secondary to intubation and pneumonia. The patient was initially admitted in a confused state and was diagnosed with acute metabolic encephalopathy secondary to alcohol intoxication. She developed sepsis secondary to UTI and acute renal insufficiency. She was tremulous. PAST MEDICAL HISTORY: Her past history includes a prior left hip fracture with surgery in October and the history of alcohol abuse. A complete description of her medical condition and history and medications can be found in her medical record. Neuropsychological consultation was requested to provide assistance in the assessment of cognitive and emotional status and to provide recommendations and services. Prior to this most recent admission, she reports that she was living independently. She states that she was driving and managing her affairs without assistance. She has 2 children. The patient has a 12th grade education. The patient does not report recurrent employment. TECHNIQUES UTILIZED: Clinical interview, review of medical records, staff consultation and behavioral observation, mini mental status exam 2 standard version and clock drawing. EXAMINATION FINDINGS: The patient was alert and oriented during the assessment. She was vague in regard to the reason for her hospitalization. She reports [facility] [address] [place] [address] CONSULTATION Name: ALIDA DHALIWAL Room #: 3-[facility] IN M.R.#: [id number] Admission: 08/05/16 Attend Phys: Wesly Modi MD Discharge: Date of : 64 Report #: [id number] that she was "asleep" for 5 days. She was unable to indicate a previous memory prior to her hospitalization. A vague retrograde amnesia is suggested. She reports that her memory and cognitive function is back to normal at this time. She is currently on disability. 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 The patient indicates having fallen down stairs in the past and possibly incurring a concussion. She reports her current symptoms to include decreased appetite. She does not report difficulty with sleep, energy level, anxiety, depression or cognitive function. Decreased insight into cognitive deficits are suggested. Her performance on the MMSE 2 brief version was 13 of 16, which is a T-score of 33 and suggesting jctf-et-rrfnymoc impairment. Her performance on the standard version of the MMSE 2 was 21 of 30, which is xtmfnqdt-lp-cmjgchnm impairment, with a T-score of 23 and percentile rank of less than 1. She was 0 of 5 for serial 7's. The patient was unable to copy a simple geometric design. She was unable to draw a clock, place the numbers in the clock or set the hands at a designated time. Severe impairment executive functioning is suggested. The patient indicates she has not driven for 2 years. She reports having been on disability because of left hip fracture. DIAGNOSTIC IMPRESSION: 1. Major neurocognitive disorder (dementia), unspecified, without behavior disorder -extent to be determined, likely in the moderate range. 2. Alcohol use disorder - persistent. RECOMMENDATIONS: The patient will require assistance in the management of medication and nutrition upon discharge. Alcohol use should be discontinued. She will require help with planning, problem solving and decision making to maintain safety. An alcohol treatment program may be necessary to assist her in discontinuation of alcohol use. Thank you very much for allowing me to provide the consultation on this patient. <ELECTRONICALLY SIGNED> By: Wesly Modi MD 08/12/16 [id number] Wesly Modi MD /nt
[~2016-08-05 16:58] MED LIST changes: +HALOPERIDOL 5 MG5 MG PO; +HUMALOG100 UNIT/1 SUBQ; +LOPRESSOR25 PO; +NICOTINE TRANSD21 M1 TRANSDERM; +PREDNISONE 20 M20 M1 PO
[2016-08-05 18:15] VITALS: BP 125/77
[2016-08-05 20:49] VITALS: BP 138/83
[2016-08-06 03:35] LABS: HEMATOCRIT 27.1 % (37.0-47.0); HEMOGLOBIN 9.2 gm/dL (12.0-15.0); MCH 31.5 pg (26.0-34.0); MCV 92.6 fL (80.0-100.0); RBC 2.92 mil/uL (4.20-5.00); RDW 14.8 % (10.5-14.5); WBC 10.4 thou/uL (4.0-11.0)
[2016-08-06 03:43] LABS: CREATININE 1.2 mg/dL (0.6-1.0)
[2016-08-06 03:53] LABS: POTASSIUM 2.9 mmol/L (3.5-5.1)
[2016-08-06 03:54] LABS: CALCIUM 5.9 mg/dL (8.5-10.1); MAGNESIUM 0.7 mg/dL (1.8-2.4)
[2016-08-06 05:18] VITALS: BP 132/82
[2016-08-06 08:15] VITALS: BP 111/70
[2016-08-06 10:17] VITALS: BP 102/74
[2016-08-06 12:13] LABS: MAGNESIUM 1.9 mg/dL (1.8-2.4)
[2016-08-06 12:14] LABS: POTASSIUM 4.3 mmol/L (3.5-5.1)
[2016-08-06 15:33] VITALS: BP 101/69
[2016-08-06 20:30] VITALS: BP 123/91
[2016-08-07 05:44] VITALS: BP 136/80
[2016-08-07 07:10] LABS: HEMATOCRIT 30.8 % (37.0-47.0); HEMOGLOBIN 10.5 gm/dL (12.0-15.0); MCH 31.8 pg (26.0-34.0); MCV 93.5 fL (80.0-100.0); RBC 3.29 mil/uL (4.20-5.00); RDW 15.2 % (10.5-14.5); WBC 10.9 thou/uL (4.0-11.0)
[2016-08-07 07:30] LABS: CALCIUM 6.7 mg/dL (8.5-10.1); CREATININE 1.3 mg/dL (0.6-1.0); MAGNESIUM 1.5 mg/dL (1.8-2.4); POTASSIUM 3.7 mmol/L (3.5-5.1)
[2016-08-07 08:11] VITALS: BP 117/81
[2016-08-07 16:01] VITALS: BP 100/73
[2016-08-07 19:57] VITALS: BP 121/76
[2016-08-08 06:04] VITALS: BP 150/89
[2016-08-08 06:31] LABS: HEMATOCRIT 30.3 % (37.0-47.0); HEMOGLOBIN 10.2 gm/dL (12.0-15.0); MCH 31.4 pg (26.0-34.0); MCHC 33.7 g/dL (28.0-37.0); RBC 3.26 mil/uL (4.20-5.00); WBC 9.4 thou/uL (4.0-11.0)
[2016-08-08 07:04] LABS: CREATININE 1.2 mg/dL (0.6-1.0); POTASSIUM 4.2 mmol/L (3.5-5.1)
[2016-08-08 16:08] VITALS: BP 115/80
[2016-08-09 05:05] VITALS: BP 156/94
[2016-08-09 07:08] LABS: HEMATOCRIT 30.6 % (37.0-47.0); HEMOGLOBIN 10.4 gm/dL (12.0-15.0); MCH 31.8 pg (26.0-34.0); MCV 93.7 fL (80.0-100.0); RBC 3.27 mil/uL (4.20-5.00); RDW 14.7 % (10.5-14.5); WBC 9.6 thou/uL (4.0-11.0)
[2016-08-09 07:29] LABS: CREATININE 1.2 mg/dL (0.6-1.0)
[2016-08-09 15:33] VITALS: BP 111/76
[2016-08-10 03:13] VITALS: BP 160/94
[2016-08-10 16:00] VITALS: BP 108/70
[2016-08-10 20:00] VITALS: BP 129/82
[2016-08-11 05:07] VITALS: BP 134/86
[2016-08-11 15:35] VITALS: BP 109/66
[2016-08-11 20:43] VITALS: BP 123/78
[2016-08-12 05:44] VITALS: BP 161/95
[2016-08-12 08:30] VITALS: BP 136/81
[2016-08-12 16:00] VITALS: BP 111/89
[2016-08-12 19:23] VITALS: BP 118/78
[2016-08-13 03:33] VITALS: BP 146/80
[2016-08-13 07:35] VITALS: BP 134/80
[2016-08-13 09:05] LABS: HEMATOCRIT 32.7 % (37.0-47.0); HEMOGLOBIN 11.2 gm/dL (12.0-15.0); MCH 31.6 pg (26.0-34.0); MCHC 34.1 g/dL (28.0-37.0); MCV 92.6 fL (80.0-100.0); RBC 3.53 mil/uL (4.20-5.00); RDW 15.5 % (10.5-14.5); WBC 10.9 thou/uL (4.0-11.0)
[2016-08-13 09:23] LABS: CALCIUM 6.5 mg/dL (8.5-10.1); CREATININE 1.2 mg/dL (0.6-1.0)
[2016-08-13 09:35] LABS: POTASSIUM 2.9 mmol/L (3.5-5.1)
[2016-08-13 15:31] VITALS: BP 102/68
[2016-08-13 16:52] VITALS: BP 102/68
[2016-08-13 20:50] VITALS: BP 142/88
[2016-08-14 03:54] VITALS: BP 152/86
[2016-08-14 06:47] VITALS: BP 128/81
[2016-08-14] MEDS ORDERED: NEXIUM40 MG PO ×2 (10:36→16:44)
[2016-08-14] MEDS ORDERED: PREDNISONE 20 M20 M1 PO ×2 (10:36→16:44)
[2016-08-14] MEDS ORDERED: LOPRESSOR25 PO ×2 (10:36→16:44)
[2016-08-14] MEDS ORDERED: COLACE100 MG PO ×2 (10:36→16:44)
[2016-08-14] MEDS ORDERED: TUMS CHEWA500 MG/11 PO ×2 (10:36→16:44)
[2016-08-14] MEDS ORDERED: NICOTINE TRANSD21 M1 TRANSDERM ×2 (10:36→16:44)
[2016-08-14] MEDS ORDERED: HALOPERIDOL 5 MG5 MG PO ×2 (10:36→16:44)
[2016-08-14 16:20] VITALS: BP 122/81
== END 2016-08-14 17:50 | disposition home health service (06) | DRG 70 ==
PROVIDERS: Nurse Practitioner Acute Care; Physical Medicine & Rehabilitation
DX: G93.41 Metabolic encephalopathy (principal); J96.00 Acute respiratory failure, unspecified whether with hypoxia or hypercapnia; A41.9 Sepsis, unspecified organism; K85.90 Acute pancreatitis without necrosis or infection, unspecified; J18.9 Pneumonia, unspecified organism; N39.0 Urinary tract infection, site not specified; D61.818 Other pancytopenia; N17.9 Acute kidney failure, unspecified; I10 Essential (primary) hypertension; E87.6 Hypokalemia; I12.9 Hypertensive chronic kidney disease with stage 1 through stage 4 chronic kidney disease, or unspecified chronic kidney disease; N18.9 Chronic kidney disease, unspecified; F03.90 Unspecified dementia, unspecified severity, without behavioral disturbance, psychotic disturbance, mood disturbance, and anxiety; F10.129 Alcohol abuse with intoxication, unspecified; Z79.899 Other long term (current) drug therapy; Z88.2 Allergy status to sulfonamides; Z88.0 Allergy status to penicillin
CPT/HCPCS: 10112